=== PATIENT | male | born 1965 | race African-American/Black ===

== ENCOUNTER 2025-11-11 03:03 | Inpatient (IN) | payer OTHER, MEDICAID ==
[2025-11-11] VITALS (11 sets, daily range): BP systolic 133–175; BP diastolic 72–91; PULSE 85–101; RESP 15–31; TEMP 35.9–36.4736; O2SAT 95–100
[~2025-11-11] VITALS: Ht 182.9 cm; Wt 117.5 kg
[~2025-11-11 03:03] MED LIST: ALBU90AE INH; ASPI-1406 PO; CLON0.2T MT; EMPA25TA PO; FLUT1BLS3 INH; HYDR100T11 MT; IBUP-1455 MT; INSU100I28 SQ; LIP40 MT; LIP40 PO; LOSA50TA41 MT; METF-1150 MT; METO-539 PO; P20 MT; PRED10TA MT; SENN-371 MT
[2025-11-11] MEDS: ALBUTEROL (0.083%) 2.5MG/3ML NEB HHN SCH (04:06)
[2025-11-11] MEDS: IPRATROPIUM BROMIDE (0.02%) 0.5MG/2.5ML NEB HHN SCH (04:06)
[2025-11-11] MEDS: METHYLPREDNISOLONE SOD SUCC 125MG/2ML (ACT-O-VIAL) IV ONE (04:07)
[2025-11-11] MEDS: ONDANSETRON HCL 4MG/2ML INJ IV ONE (04:08)
[2025-11-11] MEDS: CEFTRIAXONE 1GM/50ML 50 ML IV ONE (04:08)
[2025-11-11] MEDS: AZITHROMYCIN 500MG/250ML 250 ML IV ONE (04:33)
[2025-11-11 04:39] LABS: BASOPHILS % 0.3 % (0.0-2.0); EOSINOPHILS % 6.6 % (0.0-5.0); HEMATOCRIT. 38.1 % (42.0-52.0); HEMOGLOBIN. 11.6 g/dL (14.0-18.0); LYMPHOCYTES % 17.6 % (20.0-50.0); MEAN PLATELET VOLUME 9.1 fl (7.4-10.4); MONOCYTES % 9.5 % (2.0-8.0); NEUTROPHILS % 66.0 % (40.0-76.0); PLATELET 238 x1000/uL (130-400); RED BLOOD CELL COUNT 5.38 mill/uL (4.7-6.1); RED CELL DISTRIBUTION WIDTH 17.0 % (11.6-14.6)
[2025-11-11] MEDS: HYDRALAZINE 20MG/ML VIAL IV NR (04:47)
[2025-11-11 04:56] LABS: CREATININE 0.7 mg/dL (0.6-1.3); UREA NITROGEN BLOOD 14 mg/dL (9-23)
[2025-11-11 04:57] LABS: PROTEIN TOTAL 6.9 g/dL (6.0-8.3); TROPONIN I HIGH SENSITIVITY 13 ng/L (3.0-53)
[2025-11-11 04:58] LABS: ASPARTATE AMINOTRANSFERASE 37 IU/L (<34); BILIRUBIN DIRECT < 0.1 mg/dL (<=3.0); BILIRUBIN TOTAL 0.3 mg/dL (0.1-1.0)
[2025-11-11 06:30] LABS: TROPONIN I HIGH SENSITIVITY 13 ng/L (3.0-53)
[2025-11-11] MEDS: LOSARTAN 50 MG TABLET PO SCH ×2 (11:15→21:56)
[2025-11-11] MEDS: CLONIDINE 0.1MG TABLET PO SCH (11:15)
[2025-11-11] MEDS ORDERED: IPRATROPIUM/ALBUTEROL 0.5-3(2.5)MG/3ML NEB HHN PRN (11:30)
[2025-11-11] MEDS ORDERED: ONDANSETRON HCL 4MG/2ML INJ IV PRN (11:30)
[2025-11-11] MEDS ORDERED: DEXTROSE 50% WATER 50ML SYRINGE IV PRN (11:30)
[2025-11-11] MEDS ORDERED: GUAIFENESIN 200MG/10ML SUGAR FREE UDC PO PRN (11:30)
[2025-11-11] MEDS ORDERED: MAGNESIUM/ALUMINUM HYDROXIDE/SIMETHICONE 30ML UDC PO PRN (11:30)
[2025-11-11] MEDS ORDERED: ACETAMINOPHEN 650MG/20.3ML UDC GT PRN (11:30)
[2025-11-11] MEDS: NIFEDIPINE XL 60MG TAB PO SCH (11:55)
[2025-11-11] MEDS ORDERED: DOXYCYCLINE 100MG/100ML 100 ML IV SCH ×2 (12:00→21:00)
[2025-11-11] MEDS: ACETAMINOPHEN 325MG TABLET PO PRN (12:56)
[2025-11-11] MEDS: CLONIDINE 0.1MG TABLET PO PRN (12:56)
[2025-11-11] MEDS: METHYLPREDNISOLONE SOD SUCC 125MG/2ML (ACT-O-VIAL) IV SCH (13:00)
[2025-11-11] MEDS: BLOOD SUGAR DIAGNOSTIC STRIP TEST SCH (13:44)
[2025-11-11] MEDS: HYDRALAZINE HCL 100MG TABLET PO SCH (14:46)
[2025-11-11] MEDS: INSULIN LISPRO 100 UNITS/ML SUBCUT SCH (14:48)
[2025-11-11 17:36] LABS: CLARITY URINE CLEAR (CLEAR); COLOR URINE YELLOW (YELLOW); GLUCOSE URINE 3+ (NEGATIVE); KETONES URINE NEGATIVE (NEGATIVE); LEUKOCYTE ESTERASE URINE NEGATIVE (NEGATIVE); NITRITE URINE NEGATIVE (NEGATIVE); OCCULT BLOOD URINE NEGATIVE (NEGATIVE); PH URINE 7.5 (4.5-8.0); PROTEIN URINE 1+ (NEGATIVE); SPECIFIC GRAVITY URINE 1.030 (1.005-1.030); UROBILINOGEN URINE 0.2 E.U./dL (0.2-1.0)
[2025-11-11 17:45] LABS: *AMPHETAMINES SCREEN URINE NEGATIVE (NEGATIVE); *BARBITURATES SCREEN URINE NEGATIVE (NEGATIVE); *BENZODIAZEPINES SCREEN URINE NEGATIVE (NEGATIVE); *COCAINE SCREEN URINE NEGATIVE (NEGATIVE); CANNABINOID URINE SCREEN NEGATIVE (NEGATIVE); ECSTASY MDMA SCREEN URINE NEGATIVE (NEGATIVE); METHADONE URINE SCREEN NEGATIVE (NEGATIVE); OPIATES URINE SCREEN NEGATIVE (NEGATIVE); PHENCYCLIDINE URINE SCREEN NEGATIVE (NEGATIVE)
[2025-11-11 17:54] LABS: BACTERIA URINE TRACE; RBC URINE NONE SEEN /hpf (0-2); SQUAMOUS EPITHELIAL CELL URINE RARE /lpf (RARE/1+); WBC URINE 0-2 /hpf (0-2)
[2025-11-11] MEDS: DOCUSATE SODIUM 100MG CAPSULE PO PRN (17:55)
[2025-11-11] MEDS: DOXYCYCLINE 100MG/100ML 100 ML IV SCH (17:55)
[2025-11-11] MEDS: BUDESONIDE 0.5MG/2ML NEB HHN SCH (20:32)
[2025-11-11] MEDS: IPRATROPIUM/ALBUTEROL 0.5-3(2.5)MG/3ML NEB HHN SCH (20:32)
[2025-11-11] MEDS: MAGNESIUM 1 G PREMIX 100 ML IV SCH (21:50)
[2025-11-11] MEDS: ATORVASTATIN CALCIUM 40MG TABLET PO SCH (21:51)
[2025-11-11] MEDS: METOPROLOL TARTRATE 25MG TABLET PO SCH (21:52)
[2025-11-11] MEDS: ENOXAPARIN 30MG/0.3ML SYR SUBCUT SCH (21:53)
[2025-11-12] VITALS (15 sets, daily range): BP systolic 108–154; BP diastolic 74–87; PULSE 72–96; RESP 13–19; TEMP 36.1–36.7; O2SAT 95–99
[2025-11-12 05:27] LABS: CREATININE 0.7 mg/dL (0.6-1.3)
[2025-11-12 05:28] LABS: UREA NITROGEN BLOOD 13 mg/dL (9-23)
[2025-11-12 06:04] LABS: HEMATOCRIT. 38.9 % (42.0-52.0); HEMOGLOBIN. 11.9 g/dL (14.0-18.0); MEAN PLATELET VOLUME 9.8 fl (7.4-10.4); PLATELET 221 x1000/uL (130-400); RED BLOOD CELL COUNT 5.48 mill/uL (4.7-6.1); RED CELL DISTRIBUTION WIDTH 17.4 % (11.6-14.6)
[2025-11-12] MEDS: DOCUSATE SODIUM 100MG CAPSULE PO SCH (08:53)
[2025-11-12] MEDS: EMPAGLIFLOZIN 25MG TABLET PO SCH (08:53)
[2025-11-12] MEDS: ASPIRIN 81MG EC TABLET PO SCH (08:53)
[2025-11-12] MEDS: PIPERACILLIN/TAZO 3.375G/50ML 50 ML IV SCH (09:09)
[2025-11-12] MEDS: PANTOPRAZOLE 40MG DR TABLET PO SCH (09:09)
[2025-11-12 15:09] LABS: LYMPHOCYTES % MANUAL 10.0 % (20.0-50.0); MONOCYTES % MANUAL 3.0 % (2.0-8.0); NEUTROPHILS % MANUAL 87.0 % (45.0-75.0); PLATELET ESTIMATE NORMAL
[2025-11-12] MEDS: MAGNESIUM 2 G PREMIX 50 ML IV SCH (16:11)
[2025-11-13] VITALS (11 sets, daily range): BP systolic 127–160; BP diastolic 70–90; PULSE 72–88; RESP 16–20; TEMP 36.5–37; O2SAT 97–100
[2025-11-13 07:21] LABS: HEMATOCRIT. 39.5 % (42.0-52.0); HEMOGLOBIN. 11.9 g/dL (14.0-18.0); MEAN PLATELET VOLUME 10.3 fl (7.4-10.4); PLATELET 223 x1000/uL (130-400); RED BLOOD CELL COUNT 5.50 mill/uL (4.7-6.1); RED CELL DISTRIBUTION WIDTH 17.1 % (11.6-14.6)
[2025-11-13 07:34] LABS: CREATININE 0.8 mg/dL (0.6-1.3)
[2025-11-13 07:35] LABS: UREA NITROGEN BLOOD 16 mg/dL (9-23)
[2025-11-13 18:44] LABS: LYMPHOCYTES % MANUAL 6.0 % (20.0-50.0); MONOCYTES % MANUAL 3.0 % (2.0-8.0); NEUTROPHILS % MANUAL 91.0 % (45.0-75.0); PLATELET ESTIMATE NORMAL
== END 2025-11-13 12:05 | disposition home or self-care (01) | DRG 133 ==
LOC: ER 03:03 → 5EST 04:35 → EDBEDREQ 04:36 → EDBEDREQTM 04:36 → EDBEDREQSVC 11:49
PROVIDERS: ADMIT Internal Medicine; ATTEND Internal Medicine
PROC: 5A09357 Assistance with Respiratory Ventilation, Less than 24 Consecutive Hours, Continuous Positive Airway Pressure (ICD-10-PCS; principal; 2025-11-11)
DX: J96.21 Acute and chronic respiratory failure with hypoxia (principal); J44.1 Chronic obstructive pulmonary disease with (acute) exacerbation; I16.0 Hypertensive urgency; I50.32 Chronic diastolic (congestive) heart failure; I69.351 Hemiplegia and hemiparesis following cerebral infarction affecting right dominant side; I11.0 Hypertensive heart disease with heart failure; E11.9 Type 2 diabetes mellitus without complications; D64.9 Anemia, unspecified; K42.9 Umbilical hernia without obstruction or gangrene; E83.42 Hypomagnesemia; Z79.84 Long term (current) use of oral hypoglycemic drugs; Z79.899 Other long term (current) drug therapy; Z79.4 Long term (current) use of insulin; Z79.82 Long term (current) use of aspirin; Z71.6 Tobacco abuse counseling
CPT/HCPCS: 36415; 71045; 80048; 80076; 80305; 81003; 82962; 83605; 83735; 83880; 84484; 85025; 85379; 93005; 94070; 94640; 94660; 94664; 96365; 96367; 96375; 99291; J0360; J0456; J0696; J1650; J1815; J2405; J2543; J2919; J3475; J3490; J7626